=== PATIENT | male | born 1970 | race Two or more races ===

== ENCOUNTER 2016-11-11 14:53 | Emergency (ER) | payer MEDICAID, OTHER ==
--- NOTE | 2016-11-11 15:46 | EDM.PDOC ---
ED HPI GENERAL MEDICAL PROBLEM - General Chief Complaint: Gastrointestinal Problem Stated Complaint: DIZZY Time Seen by Provider: 11/11/16 15:20 Source of Information: Reports: Patient History Limitations: Reports: No limitations - History of Present Illness INITIAL COMMENTS - FREE TEXT/NARRATIVE: HISTORY AND PHYSICAL: History of present illness: Patient presents to the emergency department with complaints of cough, headache , shortness of breath, nausea and dizziness. He states he has been sick for about 2 weeks. He has not had fevers. He feels like a little while ago he sneezed and felt like there is fluid in his ears and he wonders if he ruptured his eardrum. He also talks about being exposed to different chemicals at work but he does not wear a mask and so is not sure if that is what is adding to his symptoms or if he has an infection. Has not seen a doctor for a while. He is supposed to be taking blood pressure medications and was on something about 4 months ago but he states it didn't help. He doesn't the medication and hasn't followed up. He doesn't remember who prescribed those pills. Review of systems: As per history of present illness and below otherwise all systems reviewed and negative. Past medical history: As per history of present illness and as reviewed below otherwise noncontributory. Surgical history: As per history of present illness and as reviewed below otherwise noncontributory. Social history: No reported history of drug or alcohol abuse. Family history: As per history of present illness and as reviewed below otherwise noncontributory. Physical exam: HEENT: Atraumatic, normocephalic, pupils reactive, negative for conjunctival pallor or scleral icterus, mucous membranes moist, throat clear, neck supple, nontender, trachea midline. Lungs: Clear to auscultation, breath sounds equal bilaterally, chest nontender. Heart: S1S2, regular, negative for clicks, rubs, or JVD. Abdomen: Soft, nondistended, nontender. Negative for masses or hepatosplenomegaly. Negative for costovertebral tenderness. Pelvis: Stable nontender. Genitourinary: Deferred. Rectal: Deferred. Extremities: Atraumatic, negative for cords or calf pain. Neurovascular unremarkable. Neuro: Awake, alert, oriented. Cranial nerves II through XII unremarkable. Cerebellum unremarkable. Motor and sensory unremarkable throughout. Exam nonfocal. Diagnostics: CBC, CMP, chest x-ray, ct head Impression: #1: cough #2: nausea #3: elevated blood pressure Plan: Patient was given a prescription for lisinopril which he states he was using before been instructed him he really needed to follow up with primary care to follow his blood pressure and reevaluate the symptoms he is having. He wanted something for the nausea. I also gave him an albuterol inhaler to help with his symptoms but he did not have pneumonia or any abnormal intracranial findings to explain his nausea and dizziness. His blood work was normal. His ileus he did go home but again stressed the need for followup with primary care next week with the patient and he verbalized understanding. Definitive disposition and diagnosis as appropriate pending reevaluation and review of above. - Related Data Allergies Allergy/AdvReac Type Severity Reaction Status Date / Time No Known Allergies Allergy Verified 11/11/16 15:35 Home Meds: Home Meds . [No Known Home Meds] 06/20/14 [History] Past Medical History Cardiovascular History: Reports: Hypertension Social & Family History - Family History Family Medical History: Noncontributory - Tobacco Use Smoking Status *Q: Never Smoker Second Hand Smoke Exposure: No - Alcohol Use Days Per Week of Alcohol Use: 1 Number of Drinks Per Day: 2 Total Drinks Per Week: 2 - Recreational Drug Use Recreational Drug Use: No ED ROS GENERAL - Review of Systems Review Of Systems: ROS reveals no pertinent complaints other than HPI. ED EXAM, GENERAL - Physical Exam Exam: See Below (See dictation.) Course - Vital Signs Last Recorded V/S: Last Vital Signs Temp 36.3 C 11/11/16 15:32 Pulse 78 11/11/16 17:28 Resp 16 11/11/16 17:28 BP 168/113 H 11/11/16 17:28 Pulse Ox 95 11/11/16 17:28 - Orders/Labs/Meds Orders: Active Orders 24 hr Category Date Time Status Chest 2V [CR] Stat Exams 11/11/16 15:30 Ordered Head wo Cont [CT] Stat Exams 11/11/16 16:22 Ordered Labs: Laboratory Tests 11/11/16 11/11/16 Range/Units 15:41 15:41 WBC 6.15 (4.0-11.0) K/uL RBC 5.21 (4.50-5.90) M/uL Hgb 15.3 (13.0-17.0) g/dL Hct 44.7 (38.0-50.0) % MCV 85.8 (80.0-98.0) fL MCH 29.4 (27.0-32.0) pg MCHC 34.2 (31.0-37.0) g/dL RDW Std Deviation 42.3 (28.0-62.0) fl RDW Coeff of Melanie 14 (11.0-15.0) % Plt Count 220 (150-400) K/uL MPV 9.40 (7.40-12.00) fL Neut % (Auto) 36.7 L (48.0-80.0) % Lymph % (Auto) 50.6 H (16.0-40.0) % [place] % (Auto) 10.2 (0.0-15.0) % Eos % (Auto) 2.0 (0.0-7.0) % Baso % (Auto) 0.5 (0.0-1.5) % Neut # (Auto) 2.3 (1.4-5.7) K/uL Lymph # (Auto) 3.1 H (0.6-2.4) K/uL [place] # (Auto) 0.6 (0.0-0.8) K/uL Eos # (Auto) 0.1 (0.0-0.7) K/uL Baso # (Auto) 0.0 (0.0-0.1) K/uL Nucleated RBC % 0.0 /100WBC Nucleated RBCs # 0 K/uL Sodium 143 (136-146) mmol/L Potassium 3.6 (3.5-5.1) mmol/L Chloride 106 (98-110) mmol/L Carbon Dioxide 27 (21-31) mmol/L BUN 18 (6.0-23.0) mg/dL Creatinine 0.9 (0.6-1.5) mg/dL Est Cr Clr Drug Dosing 92.55 mL/min Estimated GFR (MDRD) > 60.0 ml/min Glucose 88 (60-110) mg/dL Calcium 9.0 (8.8-10.8) mg/dL Total Bilirubin 0.5 (0.1-1.5) mg/dL AST 31 (5-40) IU/L ALT 47 (8-54) IU/L Alkaline Phosphatase 89 (40-150) Total Protein 7.4 (6.0-8.0) g/dL Albumin 4.1 (3.5-5.0) g/dL Globulin 3.3 (2.0-3.5) g/dL Albumin/Globulin Ratio 1.2 L (1.3-2.8) Departure - Departure Time of Disposition: 17:18 Disposition: Home, Self-Care 01 Condition: good Clinical Impression: Cough, Nausea, Elevated blood pressure reading Instructions: Nausea, Adult, Cough, Adult, [id number], Hypertension Referrals: PCP,None [Primary Care Provider] - Forms: ED Department Discharge Additional Instructions: The following information is given to patients seen in the emergency department who are being discharged to home. This information is to outline your options for follow-up care. We provide all patients seen in our emergency department with a follow-up referral. The need for follow-up, as well as the timing and circumstances, are variable depending upon the specifics of your emergency department visit. If you don't have a primary care physician on staff, we will provide you with a referral. We always advise you to contact your personal physician following an emergency department visit to inform them of the circumstance of the visit and for follow-up with them and/or the need for any referrals to a consulting specialist. The emergency department will also refer you to a specialist when appropriate. This referral assures that you have the opportunity for follow-up care with a specialist. All of these measure are taken in an effort to provide you with optimal care, which includes your follow-up. Under all circumstances we always encourage you to contact your private physician who remains a resource for coordinating your care. When calling for follow-up care, please make the office aware that this follow-up is from your recent emergency room visit. If for any reason you are refused follow-up, please contact the Emergency Department at and asked to speak to the emergency department charge nurse. Primary Care [address] [place] [id number] - My Orders Last 24 Hours: My Active Orders 11/11/16 15:30 Chest 2V [CR] Stat 11/11/16 16:22 Head wo Cont [CT] Stat - Assessment/Plan Last 24 Hours: My Active Orders 11/11/16 15:30 Chest 2V [CR] Stat 11/11/16 16:22 Head wo Cont [CT] Stat
[2016-11-11 16:12] LABS: CHLORIDE,CL 106 mmol/L (98-110); SODIUM,NA 143 mmol/L (136-146)
[2016-11-11 17:31] VITALS: BP 168/113
--- NOTE | 2016-11-13 17:44 | CR ---
EXAM DATE: 11/11/16 PATIENT'S AGE: 46 Patient: SARAH BRADLEY Facility: [place], [place] Site . Site : 1970 Study: XRay Chest [id number]/25/2017 4:04:33 PM Ordering Physician: Doctor Singh Final Report: INDICATION: Cough. COMPARISON: None. TECHNIQUE: Two view chest. FINDINGS: The lungs are clear. The heart, mediastinum and pulmonary vessels are of normal size. There is no evidence of pleural disease. IMPRESSION: Negative chest. Dictated by Toño Vance MD @ 11/11/2016 4:07:49 PM Dictated by: Toño Vance MD @ 11/11/2016 16:07:56 (Electronic Signature) Report Signed by Proxy and Original Signed Document filed in the Medical Record. MTDD
--- NOTE | 2016-11-13 17:51 | CT ---
EXAM DATE: 11/11/16 PATIENT'S AGE: 46 Patient: SARAH BRADLEY Facility: [place], [place] Site . Site : 1970 Study: CT Head [id number]/[id number] 4:34:00 PM Ordering Physician: Doctor Singh Final Report: INDICATION: Dizziness and weakness for 2 weeks. TECHNIQUE: Noncontrast head CT. FINDINGS: There is no evidence for acute intracranial hemorrhage or hydrocephalus. There is no evidence for mass effect or shift of midline structures. No calvarial or skullbase fracture. The included paranasal sinuses and mastoid air cells are clear. IMPRESSION: Negative noncontrast head CT. Dictated by Toño Vance MD @ 11/11/2016 4:43:19 PM Dictated by: Toño Vance MD @ 11/11/2016 16:43:27 (Electronic Signature) Report Signed by Proxy and Original Signed Document filed in the Medical Record. [facility]ITALCharlie
== END 2016-11-11 17:33 | disposition home or self-care (01) ==
LOC: MW.ED 14:53
DX: R11.0 Nausea (principal); R05 Cough; I10 Essential (primary) hypertension
CPT/HCPCS: 36415; 70450; 70450-26; 71020; 71020-26; 80053; 85025; 99283; 99285-25

== ENCOUNTER 2017-05-15 16:57 | Emergency (ER) | payer MEDICAID ==
[2017-05-15 17:10] VITALS: BP 183/118
--- NOTE | 2017-05-15 17:24 | EDM.PDOC ---
ED HPI GENERAL MEDICAL PROBLEM - General Chief Complaint: Medication Administration Stated Complaint: elevated BP Time Seen by Provider: 05/15/17 17:15 Source of Information: Reports: Patient History Limitations: Reports: No Limitations (As) - History of Present Illness INITIAL COMMENTS - FREE TEXT/NARRATIVE: HISTORY AND PHYSICAL: History of present illness: [History of HTN. Ran out of lisinopril about 1 week ago. Does not have refills of medications. Was originally prescribed lisinopril 1 year ago by provider at [facility]. He has no complaints or concerns. Checked his BP at home this afternoon, which resulted in an elevated reading, prompting him to report to ER for evaluation. He denies chest pain, SOA, dyspnea. No blurred vision, double vision or headaches. He has no complaints or concerns other than an elevated BP. ] Review of systems: As per history of present illness and below otherwise all systems reviewed and negative. Past medical history: As per history of present illness and as reviewed below otherwise noncontributory. Surgical history: As per history of present illness and as reviewed below otherwise noncontributory. Social history: No reported history of drug or alcohol abuse. Family history: As per history of present illness and as reviewed below otherwise noncontributory. Physical Exam: Pt refuses. Vital signs are reviewed by this examiner. Impression: [HTN] Plan: [Encouraged patient to have lab drawn and physical exam today, which he declines. Rx written for Lisinopril 10 mg #30 sig 1 by mouth daily 0 refills. He would like to establish care w/ a local PCP rather than follow at [facility]. Referral is made. ] Definitive disposition and diagnosis as appropriate pending reevaluation and review of above. - Related Data Allergies Allergy/AdvReac Type Severity Reaction Status Date / Time No Known Allergies Allergy Verified 11/11/16 15:35 Home Meds: Home Meds . [No Known Home Meds] 06/20/14 [History] Past Medical History - Past Health History Medical/Surgical History: Denies Medical/Surgical History HEENT History: Reports: None Cardiovascular History: Reports: Hypertension Respiratory History: Reports: None Gastrointestinal History: Reports: None Genitourinary History: Reports: None Musculoskeletal History: Reports: None Neurological History: Reports: None Psychiatric History: Reports: None Endocrine/Metabolic History: Reports: None Hematologic History: Reports: None Immunologic History: Reports: None Oncologic (Cancer) History: Reports: None Dermatologic History: Reports: None - Infectious Disease History Infectious Disease History: Reports: None - Past Surgical History Head Surgeries/Procedures: Reports: None HEENT Surgical History: Reports: None Cardiovascular Surgical History: Reports: None Respiratory Surgical History: Reports: None GI Surgical History: Reports: None Male Surgical History: Reports: None Endocrine Surgical History: Reports: None Neurological Surgical History: Reports: None Musculoskeletal Surgical History: Reports: None Dermatological Surgical History: Reports: None Social & Family History - Family History Family Medical History: Noncontributory - Tobacco Use Smoking Status *Q: Never Smoker Second Hand Smoke Exposure: No - Caffeine Use Caffeine Use: Reports: None - Alcohol Use Days Per Week of Alcohol Use: 1 Number of Drinks Per Day: 2 Total Drinks Per Week: 2 - Recreational Drug Use Recreational Drug Use: No ED ROS GENERAL - Review of Systems Review Of Systems: ROS reveals no pertinent complaints other than HPI. ED EXAM, GENERAL - Physical Exam Exam: See Below Course - Vital Signs Last Recorded V/S: Last Vital Signs Temp 98.6 F 05/15/17 17:06 Pulse 78 05/15/17 17:06 Resp 16 05/15/17 17:06 BP 183/118 H 05/15/17 17:06 Pulse Ox 98 05/15/17 17:06 Departure - Departure Time of Disposition: 17:30 Disposition: Home, Self-Care 01 Condition: Good Clinical Impression: HTN (hypertension) Qualifiers: Hypertension type: essential hypertension Qualified Code(s): I10 - Essential ( primary) hypertension - Discharge Information Instructions: Hypertension, [id number] Referrals: PCP,None [Primary Care Provider] - Forms: ED Department Discharge Additional Instructions: The following information is given to patients seen in the emergency department who are being discharged to home. This information is to outline your options for follow-up care. We provide all patients seen in our emergency department with a follow-up referral. The need for follow-up, as well as the timing and circumstances, are variable depending upon the specifics of your emergency department visit. If you don't have a primary care physician on staff, we will provide you with a referral. We always advise you to contact your personal physician following an emergency department visit to inform them of the circumstance of the visit and for follow-up with them and/or the need for any referrals to a consulting specialist. The emergency department will also refer you to a specialist when appropriate. This referral assures that you have the opportunity for follow-up care with a specialist. All of these measure are taken in an effort to provide you with optimal care, which includes your follow-up. Under all circumstances we always encourage you to contact your private physician who remains a resource for coordinating your care. When calling for follow-up care, please make the office aware that this follow-up is from your recent emergency room visit. If for any reason you are refused follow-up, please contact the [facility] emergency department at and asked to speak to the emergency department charge nurse. [facility] Primary Care [address] [place] [id number] Establish care with a local primary care provider at the clinic listed above. Take medication as prescribed. Return to ER as needed as discussed.
== END 2017-05-15 17:40 | disposition home or self-care (01) ==
LOC: MW.ED 16:57
DX: I10 Essential (primary) hypertension (principal)
CPT/HCPCS: 99282; 99283